=== PATIENT | male | born 1975 | race Caucasian/White ===

== ENCOUNTER 2019-01-05 01:06 | Emergency (ER) | payer SELFPAY ==
--- NOTE | 2019-01-05 01:16 | EDM.PDOC ---
ED HPI GENERAL MEDICAL PROBLEM - General Chief Complaint: Respiratory Problem Stated Complaint: PERSISTENT COUGH Time Seen by Provider: 01/05/19 01:15 Source of Information: Reports: Patient - History of Present Illness INITIAL COMMENTS - FREE TEXT/NARRATIVE: HISTORY AND PHYSICAL: History of present illness: [Patient presents with persistent cough for 2-3 weeks keeping him awake at night no fever nausea vomiting chills sweats no chest pain shortness breath headache dizziness palpitation no bowel or urine symptoms does report some intermittent wheeze ] Review of systems: As per history of present illness and below otherwise all systems reviewed and negative. Past medical history: As per history of present illness and as reviewed below otherwise noncontributory. Surgical history: As per history of present illness and as reviewed below otherwise noncontributory. Social history: No reported history of drug or alcohol abuse. Family history: As per history of present illness and as reviewed below otherwise noncontributory. Physical exam: HEENT: Atraumatic, normocephalic, pupils reactive, negative for conjunctival pallor or scleral icterus, mucous membranes moist, throat clear, neck supple, nontender, trachea midline. Lungs: Clear to auscultation, breath sounds equal bilaterally, chest nontender. Heart: S1S2, regular, negative for clicks, rubs, or JVD. Abdomen: Soft, nondistended, nontender. Negative for masses or hepatosplenomegaly. Negative for costovertebral tenderness. Pelvis: Stable nontender. Genitourinary: Deferred. Rectal: Deferred. Extremities: Atraumatic, negative for cords or calf pain. Neurovascular unremarkable. Neuro: Awake, alert, oriented. Cranial nerves II through XII unremarkable. Cerebellum unremarkable. Motor and sensory unremarkable throughout. Exam nonfocal. Diagnostics: [Chest 2 views ] Therapeutics: [DuoNeb zpak 500mg ] Impression: [ bronchitis ] Definitive disposition and diagnosis as appropriate pending reevaluation and review of above. - Related Data Allergies Allergy/AdvReac Type Severity Reaction Status Date / Time No Known Allergies Allergy Verified 01/05/19 01:19 Home Meds: Home Meds . [No Known Home Meds] 01/05/19 [History] ED ROS GENERAL - Review of Systems Review Of Systems: See Below ED EXAM, GENERAL - Physical Exam Exam: See Below Course - Vital Signs Last Recorded V/S: Last Vital Signs Temp 97.5 F 01/05/19 01:15 Pulse 97 01/05/19 01:15 Resp 18 01/05/19 01:15 BP 141/69 H 01/05/19 01:15 Pulse Ox 95 01/05/19 01:15 - Orders/Labs/Meds Orders: Active Orders 24 hr Category Date Time Status RT Aerosol Therapy [RC] ASDIRECTED Care 01/05/19 01:24 Active INFLUENZA A+B AG SCREEN [RM] Stat Lab 01/05/19 01:21 Ordered Meds: Medications Discontinued Medications Generic Name Dose Route Start Last Admin Trade Name Freq PRN Reason Stop Dose Admin Albuterol/Ipratropium 3 ml 01/05/19 01:24 01/05/19 01:38 Duoneb 3.0-0.5 Mg/3 Ml NEB 01/05/19 01:25 3 ml ONETIME ONE Administration Departure - Departure Time of Disposition: 01:44 Disposition: Home, Self-Care 01 Condition: Good Clinical Impression: Bronchitis - Discharge Information Referrals: PCP,None [Primary Care Provider] - Forms: ED Department Discharge Additional Instructions: The following information is given to patients seen in the emergency department who are being discharged to home. This information is to outline your options for follow-up care. We provide all patients seen in our emergency department with a follow-up referral. The need for follow-up, as well as the timing and circumstances, are variable depending upon the specifics of your emergency department visit. If you don't have a primary care physician on staff, we will provide you with a referral. We always advise you to contact your personal physician following an emergency department visit to inform them of the circumstance of the visit and for follow-up with them and/or the need for any referrals to a consulting specialist. The emergency department will also refer you to a specialist when appropriate. This referral assures that you have the opportunity for follow-up care with a specialist. All of these measure are taken in an effort to provide you with optimal care, which includes your follow-up. Under all circumstances we always encourage you to contact your private physician who remains a resource for coordinating your care. When calling for follow-up care, please make the office aware that this follow-up is from your recent emergency room visit. If for any reason you are refused follow-up, please contact the [facility] emergency department at and asked to speak to the emergency department charge nurse. - My Orders Last 24 Hours: My Active Orders 01/05/19 01:21 INFLUENZA A+B AG SCREEN [RM] Stat 01/05/19 01:24 RT Aerosol Therapy [RC] ASDIRECTED - Assessment/Plan Last 24 Hours: My Active Orders 01/05/19 01:21 INFLUENZA A+B AG SCREEN [RM] Stat 01/05/19 01:24 RT Aerosol Therapy [RC] ASDIRECTED
[2019-01-05] MEDS ORDERED: Albuterol/Ipratropium 3.0-0.5 MG/3 ML Neb Soln NEB ONE (01:24)
--- NOTE | 2019-01-05 01:41 | CR ---
Indication: Chest pain Technique: Chest 2 views Comparison: None Findings: Cardiovascular and mediastinum: Heart size and vasculature are normal in caliber and appearance. Lungs and pleural spaces: Lungs are clear. No sign of infiltrate or mass. No sign of pleural effusion. No pneumothorax. Bones and soft tissues: No significant findings. Impression: Unremarkable two view chest. Dictated by Antonio Alcantara MD @ Jan 05 2019 1:38AM Signed by Dr. Antonio Alcantara @ Jan 05 2019 1:40AM
== END 2019-01-05 02:08 | disposition home or self-care (01) ==
LOC: MW.ED 01:06
DX: J40 Bronchitis, not specified as acute or chronic (principal)
CPT/HCPCS: 71046; 71046-26; 94640; 99283; 99284-25; J7620-GY